=== PATIENT | female | born 1965 ===

== ENCOUNTER → 2016-12-17 | Outpatient (CLI) | payer BC ==
--- NOTE | 2016-12-17 17:09 | DIAGNOSTIC IMAGING REPORT ---
L WRIST MIN 3 VIEWS ROUTINE CLINICAL HISTORY: Lump on wrist. COMPARISON: None FINDINGS: Alignment of left wrist is anatomic. No fracture or suspicious osseous lesion is present. No erosions are identified. No soft tissue abnormality is identified by radiography. 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 IMPRESSION: 1. No fracture or suspicious osseous lesion within the left wrist. 2. No radiographic findings to account for the palpable abnormality however soft tissue lesions are often occult by radiography. Electronically signed by: Alen Villegas M.D. 12/17/2016 5:08 PM Dictated Date/Time: 12/17/2016 5:06 PM
== END | disposition home or self-care (01) ==
LOC: C.RAD1850 16:56
PROVIDERS: ATTEND Family Medicine
DX: R22.32 Localized swelling, mass and lump, left upper limb (principal)